=== PATIENT | male | born 1980 | race African-American/Black ===

== ENCOUNTER 2018-06-30 11:14 | Emergency (ER) | payer OTHER ==
[~2018-06-30] VITALS: Ht 193 cm; Wt 117.9 kg
[2018-06-30 11:15] VITALS: BP 118/73
--- NOTE | 2018-06-30 11:58 | RAD ---
Left foot, 3 views, 06/30/2018: HISTORY: Foot pain and swelling No acute fracture or dislocation is identified. There is mild subcutaneous edema. IMPRESSION: No acute bony abnormality is detected. Electronically signed by: Brian Barragan MD (06/30/2018 11:54 AM) [facility]
--- NOTE | 2018-06-30 12:05 | PHYS DOC ---
Past History Past Medical History: Asthma Past Surgical History: Other Alcohol Use: None Drug Use: None Adult General Chief Complaint Chief Complaint: LOWEREXTREMITY INJURY HPI HPI 37-year-old male presents with left foot pain. The patient works as a waiter/waitress head and noticed that he started to have pain yesterday while at work. The pain is a 3 out of 10 pressure. The pain has increased and now is left medial mid foot appears swollen. The patient denies any direct trauma or falls. He has not had swelling and pain like this in his feet in the past. He denies any other concerns or complaints Review of Systems Review of Systems Constitutional: Denies fever or chills [] Eyes: Denies change in visual acuity, redness, or eye pain [] HENT: Denies nasal congestion or sore throat [] Respiratory: Denies cough or shortness of breath [] Cardiovascular: No additional information not addressed in HPI [] GI: Denies abdominal pain, nausea, vomiting, bloody stools or diarrhea [] : Denies dysuria or hematuria [] Musculoskeletal: Foot pain[] Integument: Denies rash or skin lesions [] Neurologic: Denies headache, focal weakness or sensory changes [] Endocrine: Denies polyuria or polydipsia [] All other systems were reviewed and found to be within normal limits, except as documented in this note. Physical Exam Physical Exam Constitutional: Well developed, well nourished, no acute distress, non-toxic appearance. [] HENT: Normocephalic, atraumatic, bilateral external ears normal, oropharynx moist, no oral exudates, nose normal. [] Eyes: PERRLA, EOMI, conjunctiva normal, no discharge. [] Neck: Normal range of motion, no tenderness, supple, no stridor. [] Cardiovascular:Heart rate regular rhythm, no murmur [] Lungs & Thorax: Bilateral breath sounds clear to auscultation [] Abdomen: Bowel sounds normal, soft, no tenderness, no masses, no pulsatile masses. [] Skin: Warm, dry, no erythema, no rash. [] Back: No tenderness, no CVA tenderness. [] Extremities: Mild tenderness over the medial mid foot, mild swelling, no obvious deformity[] Neurologic: Alert and oriented X 3, normal motor function, normal sensory function, no focal deficits noted. [] Psychologic: Affect normal, judgement normal, mood normal. [] Current Patient Data Vital Signs Vital Signs Date Time Temp Pulse Resp B/P (MAP) Pulse Ox O2 Delivery O2 Flow Rate FiO2 06/30/18 11:15 98.1 59 18 98 Room Air EKG EKG [] Radiology/Procedures Radiology/Procedures [] Impressions: Left foot, 3 views, 06/30/2018: HISTORY: Foot pain and swelling No acute fracture or dislocation is identified. There is mild subcutaneous edema. IMPRESSION: No acute bony abnormality is detected. Electronically signed by: Brian Barragan MD (06/30/2018 11:54 AM) [facility] DICTATED AND SIGNED BY: BRIAN BARRAGAN MD DATE: 06/30/18 1155 CC: YANIV CARRIZALES DO; PCP,NO Course & Med Decision Making Course & Med Decision Making Pertinent Labs and Imaging studies reviewed. (See chart for details) [facility] x-rays negative for fracture. I believe he is a midfoot sprain. I have advised ibuprofen 600 mg 3 times a day and supportive care. He is stable for discharge at this time. [] Dragon Disclaimer Dragon Disclaimer This electronic medical record was generated, in whole or in part, using a voice recognition dictation system. Departure Departure: Impression: Primary Impression: Sprain of left foot Disposition: HOME, SELF-CARE Condition: STABLE Referrals: PCP,NO (PCP) Patient Instructions: Foot Sprain-Brief Problem Qualifiers Primary Impression: Sprain of left foot Encounter type: initial encounter Qualified Codes: S93.602A - Unspecified sprain of left foot, initial encounter YANIV CARRIZALES DO Jun 30, 2018 12:05
== END 2018-06-30 12:05 | disposition home or self-care (01) ==
LOC: ER 11:14
DX: S93.602A Unspecified sprain of left foot, initial encounter (principal); J45.909 Unspecified asthma, uncomplicated; X58.XXXA Exposure to other specified factors, initial encounter; Y93.89 Activity, other specified; Y92.89 Other specified places as the place of occurrence of the external cause; Y99.0 Civilian activity done for income or pay
CPT/HCPCS: 73630; 99283